=== PATIENT | female | born 1960 | race African-American/Black ===

== ENCOUNTER 2017-10-18 19:29 | Observation (INO) | payer BC, OTHER ==
[2017-10-18 19:53] VITALS: BMI 41.5
[2017-10-18] MEDS ORDERED: traMADol HCL 50 MG TABLET PO ONE (22:16)
[2017-10-18] MEDS ORDERED: traMADol HCL 50 MG TABLET ONE (22:23)
[2017-10-18] MEDS ORDERED: PROMETHAZINE HCL 25 MG TABLET PO ONE (22:34)
--- NOTE | 2017-10-18 23:01 | PDOC ---
History of Present Illness - General History Source: Patient Exam Limitations: No Limitations - History of Present Illness Initial Comments: 10/18/17 22:54 56F with h/o fibromyalgia present to the ED after misstep in stairs where she hurt her right ankle and fell on her left side. Did not hit her head or lose consciousness. Cannot bear weight on right leg. <Dale Loja - Last Filed: 10/18/17 22:54> <Gregor Hoyos - Last Filed: 10/18/17 23:51> - General Chief Complaint: Injury Stated Complaint: RIGHT ANKLE INJURY Time Seen by Provider: 10/18/17 20:06 Past History - Past Medical History Cardiac Disorders: Yes (MITRAL VALVE PROLAPSE) COPD: No HTN: Yes Hypercholesterolemia: Yes - Suicide/Smoking/Psychosocial Hx Smoking Status: No Smoking History: Never smoked Have you smoked in the past 12 months: No Number of Cigarettes Smoked Daily: 0 Information on smoking cessation initiated: No Hx Alcohol Use: No Drug/Substance Use Hx: No Substance Use Type: None <Dale Loja - Last Filed: 10/18/17 22:54> <Gregor Hoyos - Last Filed: 10/18/17 23:51> - Past Medical History Allergies/Adverse Reactions: Allergies Allergy/AdvReac Type Severity Reaction Status Date / Time Opioids-Meperidine and AdvReac SEVERE Verified 10/18/17 19:51 Related NAUSEA [Opioids-Meperidine & Related] SCALLOPS AdvReac Mild VOMITTING Uncoded 10/18/17 19:51 Home Medications: Ambulatory Orders Atorvastatin Ca [Lipitor (Restricted To Cardiology)] 20 mg PO HS 10/05/11 Metoprolol Tartrate [Lopressor] 50 mg PO DAILY 10/05/11 Review of Systems - Review of Systems Able to Perform ROS?: Yes Is the patient limited [place] proficient: No Constitutional: No: Symptoms Reported HEENTM: No: Symptoms Reported Respiratory: No: Symptoms reported Cardiac (ROS): No: Symptoms Reported ABD/GI: No: Symptoms Reported : No: Symptoms Reported Musculoskeletal: Yes: See HPI Integumentary: No: Symptoms Reported Neurological: No: Symptoms reported All Other Systems: Reviewed and Negative <Dale Loja - Last Filed: 10/18/17 22:54> *Physical Exam - Vital Signs Last Vital Signs Temp Pulse Resp BP Pulse Ox 97.7 F 101 H 18 143/79 99 10/18/17 19:47 10/18/17 19:47 10/18/17 19:47 10/18/17 19:47 10/18/17 19:47 - Physical Exam General Appearance: Yes: Nourished, Appropriately Dressed, Mild Distress HEENT: positive: EOMI, MARY Respiratory/Chest: positive: Lungs Clear, Normal Breath Sounds. negative: Chest Tender, Respiratory Distress Cardiovascular: positive: Regular Rhythm, Regular Rate, S1, S2 Vascular Pulses: Dorsalis-Pedis (R): 2+, Doralis-Pedis (L): 2+ Extremity: positive: Normal Capillary Refill, Other (swollen right ankle in EMS splint) Integumentary: positive: Normal Color, Dry, Warm Neurologic: positive: Fully Oriented, Alert, Normal Mood/Affect <Dale Loja - Last Filed: 10/18/17 22:54> - Vital Signs Last Vital Signs Temp Pulse Resp BP Pulse Ox 97.7 F 101 H 18 143/79 99 10/18/17 19:47 10/18/17 19:47 10/18/17 19:47 10/18/17 19:47 10/18/17 19:47 <Gregor Hoyos - Last Filed: 10/18/17 23:51> Procedures - Splinting Splint Location: Right: Ankle Pre-Proc Neuro Vasc Exam: normal Hand-Made Type: orthoglass Splint Type: Yes: Short Leg Post-Proc Neuro Vasc Exam: normal, unchanged from pre-exam Tono Bandage: 4", 6" Post splint xray: No <Dale Loja - Last Filed: 10/18/17 22:54> ED Treatment Course - RADIOLOGY Radiology Studies Ordered: Category Date Time Status KNEE 2 POS-LEFT [RAD] Stat Radiology 10/18/17 21:07 Taken - Medications Given in the ED: ED Medications Discontinued Medications Generic Name Dose Route Start Last Admin Trade Name Freq PRN Reason Stop Dose Admin Promethazine HCl 25 mg 10/18/17 22:34 10/18/17 22:48 Phenergan - PO 10/18/17 22:35 25 mg ONCE ONE Administration Tramadol HCl 50 mg 10/18/17 22:16 10/18/17 22:29 Ultram - PO 10/18/17 22:17 50 mg ONCE ONE Administration <Dale Loja - Last Filed: 10/18/17 22:54> - RADIOLOGY Radiology Studies Ordered: Category Date Time Status ANKLE & FOOT-RIGHT* [RAD] Stat Radiology 10/18/17 21:04 Taken - Medications Given in the ED: ED Medications Discontinued Medications Generic Name Dose Route Start Last Admin Trade Name Padma PRN Reason Stop Dose Admin Promethazine HCl 25 mg 10/18/17 22:34 10/18/17 22:48 Phenergan - PO 10/18/17 22:35 25 mg ONCE ONE Administration Tramadol HCl 50 mg 10/18/17 22:16 10/18/17 22:29 Ultram - PO 10/18/17 22:17 50 mg ONCE ONE Administration <Gregor Hoyos - Last Filed: 10/18/17 23:51> Medical Decision Making - Medical Decision Making 10/18/17 22:59 Xray positive for partial fracture of right distal fibula. \\Short posterior splint placed, Tramadol for pain at patient's request. Will give crutches, ambulette. <Dale Loja - Last Filed: 10/18/17 22:54> *DC/Admit/Observation/Transfer - Discharge Dispostion Admit: No <Dale Loja - Last Filed: 10/18/17 22:54> - Discharge Dispostion Admit: Yes <Gregor Hoyos - Last Filed: 10/18/17 23:51> Diagnosis at time of Disposition: Fracture of distal fibula - Discharge Dispostion Condition at time of disposition: Fair - Referrals Referrals: Cleveland Estevez MD [Primary Care Provider] - Marcus Oneil MD [Staff Physician] - - Patient Instructions Printed Discharge Instructions: Ankle Fracture Additional Instructions: Follow up with making appointment with Dr. Oneil upon discharge. Come back to the Emergency department for any new, worsening or concerning symptom. - Post Discharge Activity
--- NOTE | 2017-10-18 23:04 | PDOC ---
Attending Attestation - Medical Decision Making 10/18/17 23:37 First call placed to Dr. Estevez at 23:38. Awaiting call back. Documentation prepared by Chantal York, acting as medical bill processor for Gregor Hoyos MD. <Chantal York - Last Filed: 10/18/17 23:37> - Resident Resident Name: Dale Loja - ED Attending Attestation I have performed the following: I have examined & evaluated the patient, The case was reviewed & discussed with the resident, I agree w/resident's findings & plan, Exceptions are as noted - HPI HPI: 10/18/17 23:02 The patient is a 56 year old female, with a significant past medical history of hypertension, hyperlipidemia, fibromyalgia, and mitral valve prolapse, who presents to the emergency department s/p mechanical fall earlier today. The patient reports she was walking down a set of stairs, when she fell and twisted her right ankle. She denies any associated head trauma, denies LOC. Pt states that as she fell, she felt a crack in her R ankle. Pt was able to stand up afterwards but only on her left leg. She has been unable to bear weight on her R leg. Pt also reports mild pain in L knee. Pt denies headache, changes in vision, numbness, tingling, neck or back pain. She denies any chest pain, shortness of breath, or lower extremity edema. She denies any other trauma, nausea, vomiting, fever, or chills. - Physicial Exam PE: 10/18/17 23:04 "GENERAL: Awake, alert, and fully oriented, in no acute distress. HEAD: No signs of trauma EYES: PERRLA, EOMI, sclera anicteric, conjunctiva clear ENT: Auricles normal inspection, hearing grossly normal, nares patent, oropharynx clear without exudates. Moist mucosa NECK: Nontender, no stepoffs, Normal ROM, supple, no lymphadenopathy, JVD, or masses LUNGS: Breath sounds equal, clear to auscultation bilaterally. No wheezes, and no crackles HEART: Regular rate and rhythm, normal S1 and S2, no murmurs, rubs or gallops ABDOMEN: Soft, nontender, normoactive bowel sounds. No guarding, no rebound. No masses EXTREMITIES: R ankle with + effusion, + tenderness at lateral malleolus, distal pulses and sensation intact, LLE with no bony tenderness or deformities, full ROM NEUROLOGICAL: Cranial nerves II through XII intact. 5/5 strength and sensation in all extremities, Normal speech, normal gait, normal cerebellar function SKIN: Warm, Dry, normal turgor, no rashes or lesions noted. " - Medical Decision Making 10/18/17 23:06 56 F with R ankle pain and tenderness s/p fall. Possible ankle fx. Also with mild L knee pain but no bony tenderness. - XR L knee, R ankle - Pain control 10/18/17 23:43 XR with R ankle fx, distal fibula Pt splinted with posterior short leg splint. Attempts to ambulate pt with crutches unsuccessful 2/2 pain. Pt has allergy to opioids, states she can only take tramadol. Pt admitted to obs for pain control <Gregor Hoyos - Last Filed: 10/20/17 12:17>
[2017-10-19 01:15] LABS: BASO % 1.8 % (0-2.0); EOS % 2.4 % (0-4.5); HEMOGLOBIN 13.1 GM/dL (10.7-15.3); LYMPH % 20.8 % (8-40); MCH 25.8 pg (25.7-33.7); MCHC 32.8 g/dl (32.0-36.0); MEAN CELL VOLUME 78.8 fl (80-96); MEAN PLT VOLUME 7.6 fl (7.5-11.1); MONO % 6.9 % (3.8-10.2); NEUT % 68.1 % (42.8-82.8); PLATELET COUNT 312 K/MM3 (134-434); RBC 5.08 M/mm3 (3.60-5.2); RDW 14.4 % (11.6-15.6); WHITE BLOOD COUNT 10.1 K/mm3 (4.0-10.0)
--- NOTE | 2017-10-19 01:15 | HP ---
PCP: Cleveland Estevez CHIEF COMPLAINT: Right ankle pain HISTORY OF PRESENT ILLNESS: This is a 56 year old woman who comes to the ER complaining of pain in her right ankle after falling. She says that while going down stairs, her knees buckled and she fell. She developed pain in her right ankle and could not bear weight on it. She denies head trauma, loss of consciousness. PAST MEDICAL HISTORY Fibromyalgia HTN Hyperlipidemia MVP Plantar fasciitis PAST SURGICAL HISTORY Bilateral foot surgeries Allergies Opioids-Meperidine and Related [Opioids-Meperidine & Related] Adverse Reaction ( Verified 10/18/17 19:51) SEVERE NAUSEA SCALLOPS Adverse Reaction (Mild, Uncoded 10/18/17 19:51) VOMITTING HOME MEDICATIONS 3 Medication Instructions Recorded Atorvastatin Ca [Lipitor 20 mg PO HS 10/05/11 (Restricted To Cardiology)] Metoprolol Tartrate [Lopressor] 50 mg PO DAILY 10/05/11 Social History: Smoking: Never smoked Alcohol: Denies Drugs: Denies Recent Travel: No Family History: Non-contributory REVIEW OF SYSTEMS CONSTITUTIONAL: Absent: fever, chills, diaphoresis, generalized weakness, malaise, loss of appetite, weight change HEENT: Absent: rhinorrhea, nasal congestion, throat pain, throat swelling, difficulty swallowing, mouth swelling, ear pain, eye pain, visual changes CARDIOVASCULAR: Absent: chest pain, syncope, palpitations, lightheadedness, peripheral edema RESPIRATORY: Absent: cough, shortness of breath, dyspnea with exertion, orthopnea, wheezing, stridor, hemoptysis GASTROINTESTINAL: Absent: abdominal pain, abdominal distension, nausea, vomiting , diarrhea, constipation, melena, hematochezia GENITOURINARY: Absent: dysuria, frequency, urgency, hesitancy, hematuria, flank pain MUSCULOSKELETAL: Present: myalgias, arthralgias, right ankle pain and swelling. Absent: back pain, neck pain SKIN: Absent: rash, itching, pallor HEMATOLOGIC/IMMUNOLOGIC: Absent: easy bleeding, easy bruising, lymphadenopathy, frequent infections ENDOCRINE: Absent: unexplained weight gain, unexplained weight loss, heat intolerance, cold intolerance NEUROLOGIC: Absent: headache, focal weakness, paresthesias, dizziness, unsteady gait, seizure, mental status changes, bladder or bowel incontinence PSYCHIATRIC: Absent: anxiety, depression, suicidal or homicidal ideation, hallucinations. PHYSICAL EXAMINATION Vital Signs - 24 hr 10/18/17 19:47 Temperature 97.7 F Pulse Rate 101 H Respiratory 18 Rate Blood Pressure 143/79 O2 Sat by Pulse 99 Oximetry (%) GENERAL: Awake, alert, and fully oriented, in no acute distress. HEAD: Normal with no signs of trauma. EYES: Pupils equal, round and reactive to light, extraocular movements intact, sclerae anicteric, conjunctivae clear. EARS, NOSE, THROAT: Ears normal, nares patent, oropharynx clear without exudates. Moist mucous membranes. NECK: Normal range of motion, supple without lymphadenopathy, JVD, or masses. LUNGS: Breath sounds equal, clear to auscultation bilaterally. No wheezes, and no crackles. No accessory muscle use. HEART: Regular rhythm, tachycardic, normal S1 and S2 without murmur, rub or gallop. ABDOMEN: Obese, soft, nontender, not distended, normoactive bowel sounds, no guarding, no rebound, no masses. No hepatomegaly or splenomegaly. MUSCULOSKELETAL: Right ankle in cast. No CVA tenderness. UPPER EXTREMITIES: 2+ pulses, warm, well-perfused. No cyanosis. No clubbing. No peripheral edema. LOWER EXTREMITIES: 2+ pulses, warm, well-perfused. No calf tenderness. No peripheral edema. NEUROLOGICAL: Cranial nerves II-XII intact. Normal speech. Gait not observed. PSYCHIATRIC: Cooperative. Good eye contact. Appropriate mood and affect. SKIN: Warm, dry, normal turgor, no rashes or lesions noted, normal capillary refill. ASSESSMENT/PLAN: This is a 56 year old woman with a history of fibromyalgia, HTN, hyperlipidemia , MVP who presented to the ER with right ankle pain after falling. 1. Right ankle fracture, s/p fall - Splint applied in ED - Tramadol as needed for pain - patient reports this is the only opioid she can tolerate - Patient unable to ambulate with use of crutches because of obesity and fibromyalgia - Orthopedic surgery consult - Physical therapy 2. Fibromyalgia - Continue ibuprofen as needed for pain 3. HTN - Continue Lopressor 4. Hyperlipidemia - Continue Lipitor 5. MVP Hospitalist Screening - Colonoscopy Questionnaire Colonoscopy Questionnaire: Colonoscopy Questionnaire
[2017-10-19] MEDS ORDERED: ACETAMINOPHEN 325 MG TABLET (FP) PO PRN ×2 (01:22→08:18)
[2017-10-19] MEDS ORDERED: traMADol HCL 50 MG TABLET PO PRN (01:27)
[2017-10-19 01:53] LABS: ALBUMIN 4.1 g/dl (3.4-5.0); ANION GAP 8 (8-16); BLOOD UREA NITROGEN 16 mg/dL (7-18); CALCIUM 9.4 mg/dL (8.5-10.1); CHLORIDE 109 mmol/L (98-107); CO2 26 mmol/L (21-32); GLUCOSE,RANDOM 82 mg/dL (74-106); SGOT/AST 18 U/L (15-37); SGPT/ALT 24 U/L (12-78); SODIUM 143 mmol/L (136-145)
[2017-10-19 01:55] LABS: ALK PHOS 128 U/L (45-117); BILIRUBIN,TOTAL 0.4 mg/dL (0.2-1.0); TOT PROT 7.2 g/dl (6.4-8.2)
[2017-10-19] MEDS ORDERED: METOPROLOL TARTRATE 50 MG TABLET (FP) PO ONE (06:50)
[2017-10-19] MEDS ORDERED: PROMETHAZINE HCL 25 MG TABLET PO PRN (06:50)
[2017-10-19] MEDS ORDERED: IBUPROFEN 400 MG TABLET (FP) PO ONE (06:51)
[2017-10-19] MEDS ORDERED: IBUPROFEN 400 MG TABLET (FP) PO PRN (08:19)
--- NOTE | 2017-10-19 08:30 | PN ---
Progress Note (short form) - Note Progress Note: 56 y.o F was admitted fror observation last night after fall down the stairs and sustaining right ankle fracture. Today c/o rightr ankle pain, left foot pain, back pain. Vital Signs Temp 98.0 F 10/19/17 06:30 Pulse 101 H 10/19/17 06:30 Resp 18 10/19/17 06:30 BP 135/80 10/19/17 06:30 Pulse Ox 98 10/19/17 06:30 Intake & Output 10/18/17 10/18/17 10/19/17 11:59 23:59 11:59 Weight 315 lb Other: Voiding Method Toilet Height 6 ft 1 in Body Mass Index (BMI) 41.5 Weight Measurement Method Est/Stated by Patient PE alert, awake, NAD Pain is controlled. Neck-no JVD Lungs are clear. Heart S1S2 irregular-single VPC's, Abdomen soft, NT, ND, no HSM Ext right doot worm, moves toes, + edema, dressing applied Laboratory Results - last 24 hr 10/19/17 10/19/17 01:00 01:00 WBC 10.1 H RBC 5.08 Hgb 13.1 Hct 40.0 MCV 78.8 L MCH 25.8 MCHC 32.8 RDW 14.4 Plt Count 312 MPV 7.6 Neutrophils % 68.1 Lymphocytes % 20.8 D Monocytes % 6.9 Eosinophils % 2.4 Basophils % 1.8 Sodium 143 Potassium 4.0 Chloride 109 H Carbon Dioxide 26 Anion Gap 8 BUN 16 Creatinine 1.0 Creat Clearance w eGFR 57.56 Random Glucose 82 Calcium 9.4 Total Bilirubin 0.4 D AST 18 ALT 24 Alkaline Phosphatase 128 H Total Protein 7.2 Albumin 4.1 Imp right ankle fracture Hx of VPC, AT on HOLTER. Fibromyalgia. Low back pain. Allergic rhinitis. Current Active Problems Problem Status Onset Fracture of distal fibula Acute Plan ortho consult Pain management Continue meds
--- NOTE | 2017-10-19 08:33 | DS ---
Physical Examination Vital Signs: Vital Signs Temperature 98.0 F 10/19/17 06:30 Pulse Rate 101 H 10/19/17 06:30 Respiratory Rate 18 10/19/17 06:30 Blood Pressure 135/80 10/19/17 06:30 O2 Sat by Pulse Oximetry (%) 98 10/19/17 06:30 Constitutional: Yes: No Distress, Calm Eyes: Yes: Conjunctiva Clear, EOM Intact HENT: Yes: Atraumatic, Normocephalic Neck: Yes: Supple, Trachea Midline. No: Decreased ROM, Lymphadenopathy Cardiovascular: Yes: Pulse Irregular (VPC) Respiratory: Yes: Regular, CTA Bilaterally Gastrointestinal: Yes: Normal Bowel Sounds, Soft ...Rectal Exam: Yes: Deferred Renal/: No: Anuria Breast(s): Yes: WNL Extremities: Yes: Other (right fibula distal fracture) Edema: Yes Edema: RLE: 1+ Peripheral Pulses WNL: Yes Integumentary: Yes: WNL Neurological: Yes: WNL ...Motor Strength: WNL Psychiatric: Yes: WNL Labs: CBC, BMP 10/19/17 01:00 10/19/17 01:00 Discharge Summary Reason For Visit: RIGHT ANKLE INJURY Current Active Problems Fracture of distal fibula (Acute) Condition: Fair - Instructions Diet, Activity, Other Instructions: Follow up with making appointment with Dr. Oneil upon discharge. Come back to the Emergency department for any new, worsening or concerning symptom. Referrals: Marcus Oneil MD [Staff Physician] - Cleveland Estevez MD [Primary Care Provider] - Disposition: HOME - Home Medications Comprehensive Discharge Medication List: Ambulatory Orders Atorvastatin Ca [Lipitor] 20 mg PO HS 10/05/11 Metoprolol Tartrate [Lopressor] 50 mg PO DAILY 10/05/11 Ibuprofen [Motrin -] 800 mg PO Q8H PRN tablet 10/19/17
[2017-10-19] MEDS ORDERED: METOPROLOL TARTRATE 50 MG TABLET (FP) PO SCH (10:00)
--- NOTE | 2017-10-19 11:25 | CON.ORTH ---
Consult Reason for Consultation:: right ankle fx - Alcohol/Substance Use Hx Alcohol Use: No - Smoking History Smoking history: Never smoked Have you smoked in the past 12 months: No Aproximately how many cigarettes per day: 0 Home Medications - Allergies Allergies/Adverse Reactions: Allergies Allergy/AdvReac Type Severity Reaction Status Date / Time Opioids-Meperidine and AdvReac SEVERE Verified 10/18/17 19:51 Related NAUSEA [Opioids-Meperidine & Related] SCALLOPS AdvReac Mild VOMITTING Uncoded 10/18/17 19:51 - Home Medications Home Medications: Ambulatory Orders Atorvastatin Ca [Lipitor] 20 mg PO HS 10/05/11 Metoprolol Tartrate [Lopressor] 50 mg PO DAILY 10/05/11 Ibuprofen [Motrin -] 800 mg PO Q8H PRN tablet 10/19/17 Physical Exam for Ortho Vital Signs: Vital Signs Temperature 98.0 F 10/19/17 06:30 Pulse Rate 101 H 10/19/17 06:30 Respiratory Rate 18 10/19/17 06:30 Blood Pressure 135/80 10/19/17 06:30 O2 Sat by Pulse Oximetry (%) 98 10/19/17 06:30 Labs: CBC, BMP 10/19/17 01:00 10/19/17 01:00 - Lower Extremity Ankle: Yes: Right, Limited ROM, Pain, Swelling, Tenderness, Other (splint intact , nvi) Imaging - Results X-ray: Report Reviewed, Image Reviewed Assessment/Plan This is a 56 year old woman who comes to the ER complaining of pain in her right ankle after falling. She says that while going down stairs, her knees buckled and she fell. She developed pain in her right ankle and could not bear weight on it. She denies head trauma, loss of consciousness. a/p- right non displaced distal fibula fx No surgical intervention maintain splint NWB RLE elevation ok to d/c from ortho pov f/u in the office next week d/w Dr. Oneil
[2017-10-19 15:22] VITALS: BP 126/71; PULSE 76; TEMP 98.2
[2017-10-19] MEDS ORDERED: ATORVASTATIN CA 20 MG TABLET (FP) PO SCH (22:00)
[2017-10-19] MEDS ORDERED: METOPROLOL TARTRATE 25 MG TABLET (FP) PO SCH (22:00)
== END 2017-10-19 18:29 | disposition home or self-care (01) ==
LOC: JER 19:29 → JERBED 23:51 → UNDOADMOB 23:56 → JERBED 23:56 → J8W 10-19 07:26
PROVIDERS: ADMIT Internal Medicine; ATTEND Internal Medicine
PROC: 2W3QX1Z Immobilization of Right Lower Leg using Splint (ICD-10-PCS; principal; 2017-10-18)
DX: S82.61XA Displaced fracture of lateral malleolus of right fibula, initial encounter for closed fracture (principal); W10.8XXA Fall (on) (from) other stairs and steps, initial encounter; Y93.89 Activity, other specified; Y92.008 Other place in unspecified non-institutional (private) residence as the place of occurrence of the external cause; I10 Essential (primary) hypertension; E78.00 Pure hypercholesterolemia, unspecified; M79.7 Fibromyalgia; I34.1 Nonrheumatic mitral (valve) prolapse; Z88.2 Allergy status to sulfonamides; Z91.013 Allergy to seafood
CPT/HCPCS: 36415; 73560-TC-LT-FY; 73610-TC-RT-FY; 73630-TC-RT-FY; 80053; 85025; 97116-GP; 97162-GP; 99283-25; G0378